=== PATIENT | female | born 1985 | race Caucasian/White ===

== ENCOUNTER → 2025-04-20 10:41 | Outpatient (REF) | payer BC, SELFPAY | LOC: WDC 10:41 | PROVIDERS: ATTENDING PHYSICIAN Obstetrics & Gynecology; FAMILY PHYSICIAN Internal Medicine | DX: R92.8 Other abnormal and inconclusive findings on diagnostic imaging of breast (principal) | CPT/HCPCS: 76642; 77061; 77065 ==

== ENCOUNTER → 2025-05-11 12:09 | Outpatient (REF) | payer BC, SELFPAY ==
--- NOTE | 2025-05-11 13:33 | OID.BR.INTR ---
[facility] Breast Navigator - Initial
- -
Date of Contact: 05/11/25
Met with patient. Patient given written information on navigator service available at [facility]. Will follow up as needed per protocol.
== END ==
LOC: WDC 12:09
PROVIDERS: ATTENDING PHYSICIAN Obstetrics & Gynecology
DX: N63.20 Unspecified lump in the left breast, unspecified quadrant (principal); N63.23 Unspecified lump in the left breast, lower outer quadrant
CPT/HCPCS: 19083; 88305; A4648